=== PATIENT | male | born 1960 | race Caucasian/White ===

== ENCOUNTER → 2016-06-21 | Outpatient (CLI) | payer OTHER | LOC: FIMAGING 13:17 | PROVIDERS: ATTEND Specialist | DX: G89.29 Other chronic pain (principal); M51.36 Other intervertebral disc degeneration, lumbar region; M51.26 Other intervertebral disc displacement, lumbar region ==

== ENCOUNTER → 2017-05-05 | Outpatient (CLI) | payer OTHER | LOC: FIMAGING 13:51 | PROVIDERS: ATTEND Psychiatry & Neurology Neurology | DX: R93.0 Abnormal findings on diagnostic imaging of skull and head, not elsewhere classified (principal); S06.9X9A Unspecified intracranial injury with loss of consciousness of unspecified duration, initial encounter ==

== ENCOUNTER → 2017-05-20 | Outpatient (CLI) | payer OTHER ==
--- NOTE | 2017-05-25 13:48 | CPEEG ---
[f rep st] ELECTROENCEPHALOGRAM DATE OF STUDY: 05/20/2017 DATE OF INTERPRETATION: 05/25/2017. DATE OF STUDY: 05/20/2017. INTERPRETATION: This 4-hour video EEG recording is normal. There were no potentially epileptogenic abnormalities present in the awake or sleep recordings. During the video EEG monitoring session, the patient did not have any clinical events. REPORT: This EEG contains 11 Hz alpha activity over the posterior head regions. The patient had bet a frequency activity over the frontocentral head regions. This is a normal background finding. Ther e was no abnormal activation at rest, during photic stimulation or hyperventilation. The patient bec deja drowsy and then fell asleep during the study. There was no abnormal activation during drowsiness , sleep, or during times of arousal. The patient did not have any clinical events during the video E EG monitoring session. /[id number]/MODL
== END ==
LOC: FCPNEURO 09:50
PROVIDERS: ATTEND Psychiatry & Neurology Neurology
DX: S06.9X9A Unspecified intracranial injury with loss of consciousness of unspecified duration, initial encounter (principal); R41.3 Other amnesia